=== PATIENT | male | born 1960 | race African-American/Black ===

== ENCOUNTER 2016-12-03 15:11 | Emergency (ER) | payer OTHER ==
[~2016-12-03] VITALS: Ht 180.3 cm; Wt 91.3 kg
[2016-12-03] MEDS ORDERED: SODIUM CHLORIDE FLUSH 10 ML SYR IV PRN (15:30)
[2016-12-03] MEDS ORDERED: SODIUM CHLORIDE FLUSH 3 ML SYR IV ONE (15:30)
[2016-12-03] MEDS ORDERED: ONDANSETRON 2 MG/ML (Z0FRAN) 2 ML VIAL IV ONE (15:30)
[2016-12-03 15:49] LABS: BASOPHILS % (AUTO) 0 % (0-2); EOSINOPHILS % (AUTO) 1 % (0-4); LYMPHOCYTES # (AUTO) 0.9 X10^3; MEAN CORPUSCULAR HEMOGLOBIN 27.9 PG (26.0-34.0); MEAN CORPUSCULAR HGB CONC 34.5 g/dL (31.0-37.0); MEAN CORPUSCULAR VOLUME 81 FL (80-100); MONOCYTES # (AUTO) 0.4 X10^3; MONOCYTES % (AUTO) 6 % (3-11); NEUTROPHILS # (AUTO) 5.9 X10^3; NEUTROPHILS % (AUTO) 81 % (51-67); PLATELET COUNT 174 10^3uL (150-450); WHITE BLOOD COUNT 7.24 10^3uL (4.0-11.0)
[2016-12-03 16:03] LABS: ALBUMIN 4.2 g/dL (3.4-5.0); ANION GAP 14.3 MEQ/L (3-15); CALCULATED IONIZED CALCIUM 3.8 mg/dL (3.8-4.6); TOTAL PROTEIN 7.8 g/dL (6.4-8.5)
[2016-12-03] MEDS ORDERED: KETOROLAC 30 MG/ML (TORADOL) 1 ML VIAL IV ONE (16:55)
[2016-12-03 17:17] VITALS: BP 147/106
== END 2016-12-03 17:15 | disposition home or self-care (01) ==
LOC: ED 15:16
DX: R11.10 Vomiting, unspecified (principal); G44.40 Drug-induced headache, not elsewhere classified, not intractable; T39.1X5A Adverse effect of 4-Aminophenol derivatives, initial encounter
CPT/HCPCS: 36415; 80053; 83690; 85025; 86140; 96361; 96374; 96375; 99284; J1885; J2405; J7030; 99283